=== PATIENT | male | born 1970 | race African-American/Black ===

== ENCOUNTER 2017-07-09 16:17 | Emergency (ER) | payer MEDICAID, OTHER ==
[~2017-07-09] VITALS: Ht 185.4 cm; Wt 143.0 kg
[~2017-07-09 16:17] MED LIST: CLOP75TA33; IBUP-2029; LISI10TA; METF750T; METO25TA3; MI-ACID GAS; OMEP20TA80
[2017-07-09] MEDS ORDERED: GLIP5TAB12 PO (16:33)
[2017-07-09] MEDS ORDERED: METF850T2 PO (16:33)
[2017-07-09] MEDS ORDERED: CARV6.2548 PO (16:33)
[2017-07-09 19:11] LABS: BASOPHILS % 0.6 % (0.0-2.0); EOSINOPHILS % 0.3 % (0.0-5.0); HEMATOCRIT. 42.4 % (42.0-52.0); LYMPHOCYTES % 47.8 % (20.0-50.0); MEAN CORPUSCULAR HEMOGLOBIN 23.4 pg (28.0-32.0); MEAN CORPUSCULAR VOLUME 70.8 fL (80.0-94.0); MONOCYTES % 4.7 % (2.0-8.0); NEUTROPHILS % 46.6 % (40.0-76.0); PLATELET 145 x1000/uL (130-400); RED BLOOD CELL COUNT 5.99 mill/uL (4.7-6.1)
[2017-07-09 19:14] LABS: CHLORIDE 103 mEq/L (98-107)
[2017-07-09 19:15] LABS: PROTHROMBIN TIME 10.7 sec (9.4-11.6)
[2017-07-09 19:18] LABS: CARBON DIOXIDE 25 mEq/L (21-32)
[2017-07-09 19:35] LABS: CLARITY URINE CLEAR (CLEAR); COLOR URINE YELLOW (YELLOW); GLUCOSE URINE 3+ (NEGATIVE); KETONES URINE 1+ (NEGATIVE); LEUKOCYTE ESTERASE URINE NEGATIVE (NEGATIVE); NITRITE URINE NEGATIVE (NEGATIVE); OCCULT BLOOD URINE NEGATIVE (NEGATIVE); PH URINE 5.5 (4.5-8.0); PROTEIN URINE NEGATIVE (NEGATIVE); SPECIFIC GRAVITY URINE 1.041 (1.005-1.030); UROBILINOGEN URINE 0.2 E.U./dL (0.2-1.0)
[2017-07-09 20:36] VITALS: BP 138/85
== END 2017-07-09 20:42 | disposition home or self-care (01) ==
LOC: ER 16:17
DX: E11.65 Type 2 diabetes mellitus with hyperglycemia (principal); I10 Essential (primary) hypertension; K21.9 Gastro-esophageal reflux disease without esophagitis; E78.00 Pure hypercholesterolemia, unspecified
CPT/HCPCS: 36415; 80053; 81001; 85025; 85610; 99284

== ENCOUNTER 2024-12-16 23:52 | Emergency (ER) | payer MEDICAID, OTHER ==
[~2024-12-16] VITALS: Ht 185.4 cm; Wt 137.8 kg
[~2024-12-16 23:52] MED LIST changes: +CARV6.2548 PO; +GLIP5TAB22 PO; +METF-415 PO; +OMEP20TA23; -OMEP20TA80
[2024-12-17 00:05] VITALS: O2SAT 98
[2024-12-17] MEDS: METOPROLOL TARTRATE 50MG TABLET PO ONE (00:40)
[2024-12-17] MEDS: CARVEDILOL 6.25 MG TABLET PO ONE (00:40)
[2024-12-17 00:43] LABS: HEMATOCRIT 43.2 % (42.0-52.0); HEMOGLOBIN 14.3 g/dL (14.0-18.0); MEAN CORPUSCULAR HEMOGLOBIN 23.4 pg (28.0-32.0); RED BLOOD CELL COUNT 6.09 mill/uL (4.7-6.1); RED CELL DISTRIBUTION WIDTH 14.7 % (11.6-14.6); WHITE BLOOD COUNT 9.3 x1000/uL (4.5-11.0)
[2024-12-17 00:53] LABS: CHLORIDE 105 mEq/L (98-107); POTASSIUM 3.9 mEq/L (3.5-5.1); SODIUM 141 mEq/L (136-145)
[2024-12-17 00:54] LABS: CALCIUM 9.6 mg/dL (8.7-10.4); CARBON DIOXIDE 27 mEq/L (21-32)
[2024-12-17 00:58] LABS: PLATELET 197 x1000/uL (130-400)
[2024-12-17 00:59] LABS: CREATININE 1.2 mg/dL (0.6-1.3); GLUCOSE 127 mg/dL (70-105); UREA NITROGEN BLOOD 12 mg/dL (9-23)
[2024-12-17 01:30] LABS: TROPONIN I HIGH SENSITIVITY 5 ng/L (3.0-53)
[2024-12-17] MEDS: SUMATRIPTAN SUCCINATE 25MG TABLET PO ONE (01:39)
[2024-12-17] MEDS: LISINOPRIL 20MG TABLET PO ONE (01:39)
[2024-12-17 02:06] VITALS: BP 181/102; PULSE 86; RESP 19; TEMP 37.05852; O2SAT 99
[2024-12-17] MEDS: HYDRALAZINE HCL 25MG TABLET PO ONE (02:17)
== END 2024-12-17 03:48 | disposition home or self-care (01) ==
LOC: ER 23:52
DX: R51.9 Headache, unspecified (principal); E11.9 Type 2 diabetes mellitus without complications; E78.00 Pure hypercholesterolemia, unspecified; I10 Essential (primary) hypertension; K21.9 Gastro-esophageal reflux disease without esophagitis
CPT/HCPCS: 36415; 80048; 84484; 85027; 93005; 99285

== ENCOUNTER 2025-03-15 08:39 | Emergency (ER) | payer MEDICAID, OTHER ==
[~2025-03-15] VITALS: Ht 185.4 cm; Wt 139.3 kg
[2025-03-15 08:46] VITALS: O2SAT 98
[2025-03-15] MEDS ORDERED: IBUP-2028 MT (09:06)
[2025-03-15] MEDS ORDERED: CYCL10TA21 MT (09:06)
[2025-03-15] MEDS: KETOROLAC 30MG/ML VIAL IM STA (09:15)
[2025-03-15 09:20] VITALS: BP 160/90; PULSE 100; RESP 16; TEMP 36.7; O2SAT 100
== END 2025-03-15 09:20 | disposition home or self-care (01) ==
LOC: ER 08:39
DX: M54.50 Low back pain, unspecified (principal); E11.9 Type 2 diabetes mellitus without complications; E78.00 Pure hypercholesterolemia, unspecified; I10 Essential (primary) hypertension; Z68.41 Body mass index [BMI] 40.0-44.9, adult; Z79.899 Other long term (current) drug therapy; Z98.890 Other specified postprocedural states
CPT/HCPCS: 99283; 96372; J1885

== ENCOUNTER 2025-10-06 18:44 | Emergency (ER) | payer MEDICAID, OTHER ==
[~2025-10-06] VITALS: Ht 185.4 cm; Wt 136.0 kg
[~2025-10-06 18:44] MED LIST changes: +CYCL10TA21 MT; +IBUP-1455; +IBUP-2028 MT; -IBUP-2029
[2025-10-06 18:48] VITALS: TEMP 36.7; O2SAT 100
[2025-10-06 20:45] LABS: CLARITY URINE CLEAR (CLEAR); COLOR URINE YELLOW (YELLOW); GLUCOSE URINE TRACE (NEGATIVE); KETONES URINE TRACE (NEGATIVE); LEUKOCYTE ESTERASE URINE 2+ (NEGATIVE); NITRITE URINE NEGATIVE (NEGATIVE); OCCULT BLOOD URINE TRACE (NEGATIVE); PH URINE 5.5 (4.5-8.0); PROTEIN URINE TRACE (NEGATIVE); SPECIFIC GRAVITY URINE 1.030 (1.005-1.030); UROBILINOGEN URINE 1.0 E.U./dL (0.2-1.0)
[2025-10-06 20:57] LABS: BACTERIA URINE 1+; SQUAMOUS EPITHELIAL CELL URINE 1+ /lpf (RARE/1+); WBC URINE TNTC /hpf (0-2)
[2025-10-06] MEDS ORDERED: TAMS-54 MT (21:12)
[2025-10-06] MEDS ORDERED: CEFP200T13 MT (21:12)
[2025-10-06 21:41] VITALS: BP 198/83; PULSE 90; RESP 16; O2SAT 99
== END 2025-10-06 21:42 | disposition home or self-care (01) ==
LOC: ER 18:54
DX: N39.0 Urinary tract infection, site not specified (principal); I10 Essential (primary) hypertension; E78.00 Pure hypercholesterolemia, unspecified; E11.9 Type 2 diabetes mellitus without complications; K21.9 Gastro-esophageal reflux disease without esophagitis; Z79.899 Other long term (current) drug therapy
CPT/HCPCS: 81003; 99283